=== PATIENT | male | born 1980 | race Caucasian/White ===

== ENCOUNTER → 2019-10-21 | Outpatient (CLI) | payer OTHER ==
[2019-10-21 11:46] LABS: URINE BILIRUBIN NEGATIVE (Negative); URINE BLOOD NEGATIVE (Negative); URINE CLARITY CLEAR; URINE COLOR YELLOW; URINE GLUCOSE-RANDOM* NEGATIVE (Negative); URINE KETONES NEGATIVE (Negative); URINE LEUKOCYTES NEGATIVE (Negative); URINE NITRITE NEGATIVE (Negative); URINE PROTEIN (DIPSTICK) NEGATIVE (Negative); URINE SPECIFIC GRAVITY 1.025 (1.005-1.035)
[2019-10-21 11:56] LABS: CRYSTALS None Seen /LPF (None Seen); SQUAMOUS 0-3 Few /LPF (0-3); URINE RBC 0-2 Rare /HPF (0-2); URINE WBC 0-5 Rare /HPF (0-5)
[2019-10-21 11:59] LABS: BACTERIA 1-9 Few /HPF (None Seen)
[2019-10-24 13:08] LABS: SYPHILIS AB Reactive (Non Reactive)
== END ==
LOC: LABMALL 09:41
PROVIDERS: ATTEND Neuromusculoskeletal Medicine & OMM
DX: Z76.89 Persons encountering health services in other specified circumstances (principal)